=== PATIENT | male | born 1945 | race Caucasian/White ===

== ENCOUNTER → 2017-04-24 | Outpatient (CLI) | payer MEDICARE ==
--- NOTE | 2017-04-24 12:34 | PCVCIMAG ---
APPROVED REPORT Study performed: 04/24/2017 09:16:00 EXAM: Comprehensive 2D, Doppler, and color-flow Echocardiogram Patient Location: Echo lab Status: routine Other Information Study Quality: Adequate Indications CAD Hypertension/HDD CABG 2D Dimensions LVEF(%): 86.61 (>50%) IVSd: 12.87 (7-11mm)LVOT Diam: 21.05 (18-24mm) LVDd: 44.01 mm LVPWs: 28.81 mm PWd: 12.81 (7-11mm)Ascending Ao: 35.93 (22-36mm) LVDs: 19.38 (25-40mm) Left Atrium: 42.08 (27-40mm) Aortic Root: 30.39 mm LV Single Plane 4CH: 69.16 % LV Single Plane 2CH: 70.86 %Villanueva's LVEF: 70.01 % Volumes Left Atrial Volume (Systole) Single Plane 4CH: 57.82 mLSingle Plane 2CH: 64.01 mL LA ESV Index: 22.00 mL/m2 Aortic Valve AoV Peak Kadeem.: 2.08 m/s AO Peak Gr.: 17.38 mmHgLVOT Max P.54 mmHg AO Mean Gr.: 9.27 mmHg AO V2 Mean: 1.46 m/sLVOT Max V: 1.37 m/s AO V2 VTI: 42.05 cm ASH Vmax: 2.29 cm2 AI Vmax: 3.82 m/s AI [place]: 2.12 m/s2 AI PHT: 521.46 ms Mitral Valve E/A Ratio: 1.4 MV Decel. Time: 213.13 ms MV E Max Kadeem.: 1.25 m/s MV A Kadeem.: 0.89 m/s IVRT: 51.90 ms TDI E/Lateral E': 0.14E/Medial E': 12.50 Medial E' Kadeem.: 0.10 m/s Lateral E' Kadeem.: 9.00 m/s Pulmonary Valve PV Peak Gr.: 3.96 mmHg Pulmonary Vein P Vein S: 0.71 m/sP Vein A: 0.34 m/s P Vein D: 0.67 m/sP Vein A Dur.: 86.5 msec P Vein S/D Ratio: 1.06 Tricuspid Valve TR Peak Kadeem.: 2.13 m/s TR Peak Gr.: 18.10 mmHg Left Ventricle The left ventricle is normal size. There is normal LV segmental wall motion. Mild concentric left ventricular hypertrophy. Left ventricular systolic function is normal. The left ventricular ejection fraction is within the normal range. LVEF is 60-65%. Right Ventricle The right ventricle is normal size. The right ventricular systolic function is normal. Atria Left atrium is mildly dilated. The right atrium size is normal. Aortic Valve The Aortic valve is sclerotic. Mild aortic regurgitation. There is no aortic valvular stenosis. Mitral Valve The mitral valve is normal in structure. Mild to moderate mitral regurgitation. No evidence of mitral valve stenosis. Tricuspid Valve The tricuspid valve is normal in structure. Trace tricuspid regurgitation. Pulmonic Valve The pulmonary valve is normal in structure. There is no pulmonic valvular regurgitation. Great Vessels The aortic root is normal in size. IVC is normal in size and collapses with >50% inspiration Pericardium There is no pericardial effusion. <Conclusion> The left ventricle is normal size. Mild concentric left ventricular hypertrophy. Left ventricular systolic function is normal. The right ventricle is normal size. Left atrium is mildly dilated. The Aortic valve is sclerotic. Mild aortic regurgitation. Mild to moderate mitral regurgitation.
== END | disposition home or self-care (01) ==
LOC: PCVCIMAG 09:13
PROVIDERS: ATTEND Internal Medicine Cardiovascular Disease
DX: I08.3 Combined rheumatic disorders of mitral, aortic and tricuspid valves (principal); I25.10 Atherosclerotic heart disease of native coronary artery without angina pectoris; I10 Essential (primary) hypertension; E78.00 Pure hypercholesterolemia, unspecified; I73.9 Peripheral vascular disease, unspecified; I71.4 Abdominal aortic aneurysm, without rupture; G62.9 Polyneuropathy, unspecified; Z95.1 Presence of aortocoronary bypass graft; Z88.8 Allergy status to other drugs, medicaments and biological substances; Z79.82 Long term (current) use of aspirin; Z79.899 Other long term (current) drug therapy
CPT/HCPCS: 93005; 93306; G0463

== ENCOUNTER → 2018-12-01 | Outpatient (CLI) | payer MEDICARE ==
--- NOTE | 2018-12-01 14:44 | PCVCIMAG ---
EXAM: AORTOILIAC DUPLEX INDICATION: Abdominal aortic aneurysm. FINDINGS: AORTA: Suprarenal aorta measures maximum diameter of 3.0 cm. There is a fusiform infrarenal aortic aneurysm. The infrarenal aorta measures maximum diameter of 2.9 x 3.6 cm. No aortic stenosis. RIGHT COMMON ILIAC ARTERY: Maximum diameter is 1.3 cm. No significant stenosis. RIGHT EXTERNAL ILIAC ARTERY: No significant stenosis. LEFT COMMON ILIAC ARTERY: Maximum diameter is 1.3 cm. No significant stenosis. LEFT EXTERNAL ILIAC ARTERY: No significant stenosis. IMPRESSION: 3.6 cm infrarenal abdominal aortic aneurysm compares to 3.0 cm on 2016 study. Interval follow-up in 6 months is suggested. LOC:[id number]
== END | disposition home or self-care (01) ==
LOC: PCVCIMAG 09:31
PROVIDERS: ATTEND Internal Medicine Cardiovascular Disease
DX: I71.4 Abdominal aortic aneurysm, without rupture (principal); E78.00 Pure hypercholesterolemia, unspecified
CPT/HCPCS: 93978

== ENCOUNTER → 2019-06-02 | Outpatient (CLI) | payer MEDICARE ==
--- NOTE | 2019-06-02 08:41 | PCVCIMAG ---
EXAM: AORTOILIAC DUPLEX INDICATION: Abdominal aortic aneurysm. FINDINGS: AORTA: Suprarenal aorta measures maximum diameter of 3.0 cm. There is a fusiform infrarenal aortic aneurysm. The infrarenal aorta measures maximum diameter of 3.0 x 3.7 cm. No aortic stenosis. RIGHT COMMON ILIAC ARTERY: Maximum diameter is 1.5 cm. No significant stenosis. RIGHT EXTERNAL ILIAC ARTERY: No significant stenosis. LEFT COMMON ILIAC ARTERY: Maximum diameter is 1.5 cm. No significant stenosis. LEFT EXTERNAL ILIAC ARTERY: No significant stenosis. IMPRESSION: 3.7 cm infrarenal abdominal aortic aneurysm compares to 3.6 cm on November 2018 study. Interval follow-up in 1 year is suggested. No aortoiliac stenosis. LOC:[id number]
--- NOTE | 2019-06-02 09:31 | PCVCIMAG ---
APPROVED REPORT Study performed: 06/02/2019 08:31:58 EXAM: Comprehensive 2D, Doppler, and color-flow Echocardiogram Patient Location: [facility] BSA: 2.19 HR: 54 bpmBP: 122/74 mmHg Rhythm: NSR Other Information Study Quality: Adequate Risk Factors: Cardiac Risk Factors: HTN, Hyperlipidemia, DM Indications CAD Hypertension/HDD s/p CABG 2D Dimensions IVSd: 6.97 (7-11mm)LVOT Diam: 23.27 (18-24mm) LVDd: 59.82 mm PWd: 8.67 (7-11mm)Ascending Ao: 37.83 (22-36mm) LVDs: 35.98 (25-40mm) Left Atrium: 42.51 (27-40mm) Aortic Root: 31.77 mm LV Single Plane 4CH: 62.30 % LV Single Plane 2CH: 56.49 % Biplane EF: 59.6 % Volumes Left Atrial Volume (Systole) Single Plane 4CH: 78.40 mLSingle Plane 2CH: 63.42 mL Biplane LA Volume: 71.00 mLLA ESV Index: 32.00 mL/m2 Aortic Valve AoV Peak Kadeem.: 1.99 m/s AO Peak Gr.: 16.12 mmHgLVOT Max P.21 mmHg AO Mean Gr.: 9.37 mmHgLVOT Mean P.86 mmHg AO V2 Mean: 1.46 m/sLVOT Max V: 0.99 m/s AO V2 VTI: 41.95 cmLVOT Mean V: 0.62 m/s ASH (VTI): 2.54 [id number] VTI: 25.07 cm ASH Vmax: 2.11 cm2 AI Vmax: 4.00 m/sSV (LVOT): 106.55 mL AI Bee: 1.93 m/s2 AI PHT: 601.03 ms Mitral Valve E/A Ratio: 1.3 MV Decel. Time: 188.46 ms MV E Max Kadeem.: 1.15 m/s MV A Kadeem.: 0.88 m/s IVRT: 69.20 ms Pulmonary Valve PV Peak Kadeem.: 1.15 m/sPV Peak Gr.: 5.32 mmHg Pulmonary Vein P Vein S: 0.40 m/sP Vein A: 0.37 m/s P Vein D: 0.56 m/sP Vein A Dur.: 83.0 msec P Vein S/D Ratio: 0.71 Tricuspid Valve TR Peak Kadeem.: 2.31 m/s TR Peak Gr.: 21.33 mmHg TV Vmax: 1.05 m/sPA Pressure: 28.00 mmHg Left Ventricle Left ventricle is mildly dilated. There is normal LV segmental wall motion. There is normal left ventricular wall thickness. Left ventricular systolic function is normal. The left ventricular ejection fraction is within the normal range. LVEF is 55-60%. Transmitral Doppler flow pattern suggests impaired LV relaxation. Right Ventricle The right ventricle is normal size. The right ventricular systolic function is normal. Atria The left atrium size is normal. The right atrium size is normal. Aortic Valve Aortic valve is trileaflet. Mild aortic valve sclerosis without stenosis. Mild aortic regurgitation. There is no aortic valvular stenosis. Mitral Valve The mitral valve is normal in structure. Mild mitral regurgitation. No evidence of mitral valve stenosis. Tricuspid Valve The tricuspid valve is normal in structure. Trace tricuspid regurgitation with a PA pressure of 28 mmHg. No pulmonary hypertension. Pulmonic Valve The pulmonary valve is normal in structure. There is no pulmonic valvular regurgitation. Great Vessels The aortic root is normal in size. The ascending aorta is normal in size. Aortic arch is normal in caliber. IVC is not well visualized. Pericardium There is no pericardial effusion. There is no pleural effusion. <Conclusion> Left ventricle is mildly dilated. There is normal left ventricular wall thickness. Left ventricular systolic function is normal. The right ventricle is normal size. The left atrium size is normal. The right atrium size is normal. Mild aortic valve sclerosis without stenosis. Mild aortic regurgitation. Mild mitral regurgitation. Trace tricuspid regurgitation with a PA pressure of 28 mmHg.
== END | disposition home or self-care (01) ==
LOC: PCVCIMAG 08:02
PROVIDERS: ATTEND Internal Medicine Cardiovascular Disease
DX: I08.0 Rheumatic disorders of both mitral and aortic valves (principal); I71.4 Abdominal aortic aneurysm, without rupture; I25.10 Atherosclerotic heart disease of native coronary artery without angina pectoris; I10 Essential (primary) hypertension; E78.5 Hyperlipidemia, unspecified; E78.00 Pure hypercholesterolemia, unspecified; Z88.8 Allergy status to other drugs, medicaments and biological substances; Z79.82 Long term (current) use of aspirin; Z79.899 Other long term (current) drug therapy; Z95.1 Presence of aortocoronary bypass graft
CPT/HCPCS: 93005; 93306; 93978; G0463